=== PATIENT | male | born 1965 | race Caucasian/White ===

== ENCOUNTER 2022-11-20 09:53 | Emergency (ER) | payer OTHER ==
[2022-11-20 10:02] VITALS: RESP 18; BMI 25.7
[2022-11-20 10:57] LABS: VENOUS BASE EXCESS 0.5 mmol/L (-2-2); VENOUS PH 7.374 (7.310-7.410)
[2022-11-20 11:02] LABS: PLATELET COUNT 270 10^3/uL (134-434)
[2022-11-20 11:10] LABS: BASO % 0.3 % (0-2.0); EOS % 2.2 % (0-4.5); HEMATOCRIT 44.6 % (35.4-49); HEMOGLOBIN 14.4 GM/dL (11.7-16.9); INR 1.1 (0.83-1.09); LYMPH % 20.1 % (8-40); MCH 28.4 pg (25.7-33.7); MCHC 32.3 g/dl (32.0-35.9); MEAN PLT VOLUME 8.8 fl (7.5-11.1); MONO % 8.1 % (3.8-10.2); NEUT % 69.3 % (42.8-82.8); PROTHROMBIN TIME (PATIENT) 12.7 SEC (9.7-13.0); RBC 5.06 M/mm3 (4.00-5.60); WHITE BLOOD COUNT 8.8 K/mm3 (4.0-10.0)
[2022-11-20 11:12] LABS: ACTIVATED PTT 31.3 SECONDS (25.2-36.5)
[2022-11-20 11:21] LABS: CHLORIDE 104 mmol/L (98-107); POTASSIUM 4.7 mmol/L (3.5-5.1); SODIUM 140 mmol/L (136-145)
[2022-11-20 11:24] LABS: ALBUMIN 3.6 g/dl (3.4-5.0); ANION GAP 7 MMOL/L (8-16); BLOOD UREA NITROGEN 19.6 mg/dL (7-18); CO2 29 mmol/L (21-32); GLUCOSE,RANDOM 112 mg/dL (74-106)
[2022-11-20 11:27] LABS: CREATININE 1.2 mg/dL (0.55-1.3); SGOT/AST 22 U/L (15-37); SGPT/ALT 26 U/L (13-61)
[2022-11-20 11:29] LABS: BILIRUBIN,TOTAL 0.8 mg/dL (0.2-1); TOT PROT 7.3 g/dl (6.4-8.2)
[2022-11-20 11:30] LABS: ALK PHOS 85 U/L (45-117)
[2022-11-20 11:32] LABS: N-TERMINAL BNP 25.5 pg/ml (5-125)
[2022-11-20 12:52] VITALS: BP 162/84; PULSE 86; TEMP 98.3
[2022-11-20] MEDS ORDERED: ASPIRIN 81 MG CHEWABLE TABLETS PO ONE (12:54)
[2022-11-20] MEDS ORDERED: ASPIRIN 81 MG CHEWABLE TABLETS ONE (12:57)
== END 2022-11-20 15:01 | disposition short-term general hospital (02) ==
LOC: JER 09:53
DX: S01.112A Laceration without foreign body of left eyelid and periocular area, initial encounter (principal); S02.92XA Unspecified fracture of facial bones, initial encounter for closed fracture; I63.9 Cerebral infarction, unspecified; R05.9 Cough, unspecified; R06.7 Sneezing; R55 Syncope and collapse; W01.198A Fall on same level from slipping, tripping and stumbling with subsequent striking against other object, initial encounter; Z20.822 Contact with and (suspected) exposure to COVID-19
CPT/HCPCS: 0241U-QW; 36415; 70450-TC; 70486-TC; 70496-TC; 70498-TC; 71045-TC-FY; 80053; 80307; 82140; 82803; 83605; 83880; 84443; 84484; 85025; 85610; 85730; 93005; 93010; 99285-25